=== PATIENT | male | born 1970 | race Caucasian/White ===

== ENCOUNTER 2018-08-31 05:20 | Inpatient (IN) | payer OTHER ==
[~2018-08-31] VITALS: Ht 185.4 cm; Wt 141.8 kg
[2018-08-31] VITALS (28 sets, daily range): BP systolic 90–136; BP diastolic 50–85; PULSE 80–114; RESP 15–20; Ht 185.4 cm; Wt 141.8 kg
--- NOTE | 2018-08-31 06:43 | PREAC ---
Date/Time of Note Date/Time of Note DATE: 08/31/18 TIME: 06:40 Anesthesia Eval and Record Evaluation Time Pre-Procedure Interview DATE: 08/31/18 TIME: 06:40 Age 47 Sex male NPO: 8 hrs Preoperative diagnosis L5-S1 spondylolisthesis and foraminal stenosis Planned procedure posterior lumbar fusion L5-S1 using interbody cages, brandie, bmp, screws Past Medical History Past Medical History: Includes GI: Morbid obesity Surgery & Anesthesia Issues No known issue Meds Anticoagulation: No Beta Len within 24 hr: No Reason Beta Len not given: Pt. not on B-Len No Active Prescriptions or Reported Meds Meds reviewed: Yes Allergies Coded Allergies: No Known Allergy (Unverified , 08/31/18) Allergies Reviewed: Yes Labs/Studies Labs Reviewed: Reviewed by anesthesiologist test: N/A Studies: ECG (nsr), CXR (nad) Pre-procedure Exam Last vitals Vital Signs Date Temp Pulse Resp B/P (MAP) Pulse Ox O2 O2 Flow FiO2 Time Delivery Rate 08/31/18 97.4 80 18 136/85 97 Room Air 05:41 (102) Airway: Adequate mouth opening, Adequate thyromental dist Mallampati: Mallampati II Teeth: Normal Lung: Normal Heart: Normal ASA Physical Status ASA physical status: 3 Emergency: None Planned Anesthetic General/MAC: ETT Planned Pain Management Parenteral pain med Pre-operative Attestations Prior to commencing anesthesia and surgery, the patient was re-evaluated, there was verification of: *The patient's identity *The results of appropriate recent lab work and preoperative vital signs *The above evaluation not changing prior to induction *Anesthetic plan, risk benefits, alternative and complications discussed with pa tient/family; questions answered; patient/family understands, accepts and wishes to proceed. HAYDER CURRY MD Aug 31, 2018 06:43
[2018-08-31] MEDS ORDERED: POLYMYXIN/BACITRACIN 1L IRRIG ONE (06:59)
[2018-08-31] MEDS ORDERED: THROMBIN 5000 UNIT VIAL ONE (06:59)
[2018-08-31] MEDS ORDERED: SEVOFLURANE 15 MIN ONE (07:00)
[2018-08-31] MEDS ORDERED: GELATIN SIZE 100 SPONGE ONE (07:00)
[2018-08-31] MEDS ORDERED: CEFAZOLIN 1 GM INJ ONE ×2 (07:00→07:18)
[2018-08-31] MEDS ORDERED: LIDOCAINE 2% (SDV) 5 ML INJ ONE (07:00)
[2018-08-31] MEDS ORDERED: PROPOFOL 20 ML ONE ×2 (07:00→07:18)
[2018-08-31] MEDS ORDERED: BUPIVACAINE 0.25% (MPF) 30 ML INJ ONE (07:00)
[2018-08-31] MEDS ORDERED: CEFAZOLIN 1 GM/50 ML (PMX) 50 ML IVPB ONE (07:00)
[2018-08-31] MEDS ORDERED: MIDAZOLAM 1 MG/ML 2 ML INJ ONE (07:00)
[2018-08-31] MEDS ORDERED: SUCCINYLCHOLINE CHLORIDE 100 MG/5 ML SYG IV ONE (07:00)
[2018-08-31] MEDS ORDERED: ROCURONIUM 50 MG INJ ONE ×2 (07:00→07:41)
--- NOTE | 2018-08-31 07:03 | HPN ---
Date/Time of Note Date/Time of Note DATE: 08/31/18 TIME: 07:03 Interval H&P Admission Note Pt. seen H&P reviewed: No system changes ZARI KANG MD Aug 31, 2018 07:03
[2018-08-31] MEDS ORDERED: CEFAZOLIN 2 GM/50 ML (PMX) 50 ML IVPB ONE (07:30)
[2018-08-31] MEDS ORDERED: ONDANSETRON 4 MG INJ ONE (07:40)
[2018-08-31] MEDS ORDERED: FAMOTIDINE 20 MG INJ ONE (07:40)
[2018-08-31] MEDS ORDERED: DEXAMETHASONE 4 MG/ML 5 ML INJ ONE (07:40)
[2018-08-31] MEDS ORDERED: EPHEDrine 25 MG/5 ML SYG ONE (08:18)
[2018-08-31] MEDS ORDERED: hydrALAzine 20 MG INJ ONE (09:58)
[2018-08-31] MEDS ORDERED: ESMOLOL 10 ML ONE (10:00)
[2018-08-31] MEDS ORDERED: HYDROmorphONE 2 MG/ML SYG ONE (10:59)
--- NOTE | 2018-08-31 12:50 | PAC ---
Date/Time of Note Date/Time of Note DATE: 08/31/18 TIME: 12:49 Post-Anesthesia Notes Post-Anesthesia Note Last documented vital signs Vital Signs Date Temp Pulse Resp B/P (MAP) Pulse Ox O2 O2 Flow FiO2 Time Delivery Rate 08/31/18 98.3 12:41 08/31/18 80 18 136/85 97 Room Air 05:41 (102) Activity: WNL Respiratory function: WNL Cardiovascular function: WNL Mental status: Baseline Pain reasonably controlled: Yes Hydration appropriate: Yes Nausea/Vomiting absent: Yes Comments BP: 99/58 HR: 99 RR: 15 T: 98.3 SaO2: 98% HAYDER CURRY MD Aug 31, 2018 12:50
--- NOTE | 2018-08-31 12:58 | SIPON ---
Date/Time of Note Date/Time of Note DATE: 08/31/18 TIME: 12:52 Operative Report Preoperative Diagnosis Grade 1 isthmic spondylolisthesis at L5-S1 with bilateral foraminal stenosis Postoperative Diagnosis Same Operation/Procedure Performed Denise procedure L5 (removal of loose posterior arch) Transforaminal lumbar interbody fusion at L5-S1 with RTI pedicle screws and rods Placement of interbody cage with bone graft and bone graft substitute (Nanoss) Cosmetic wound closure (10 cm) Intraoperative AP and lateral lumbar fluoroscopy Spinal cord monitoring (4.5 hours) Surgeon see signature line entry level assistant manager Celia SMITH Anesthesia: general Estimated blood loss: 150 - 200 ml's Transfusion Required none Specimen Disc material L5-S1 Grafts/Implants Two 5.5mm x 45mm pedicle screws Two 6.5 x 35mm pedicle screws A 6 cm lordotic brandie A 4 cm lordotic brandie A 12 mm lordotic peek cage Nanoss bone growth substitute Complications none ZARI KANG MD Aug 31, 2018 12:58
[2018-08-31] MEDS ORDERED: ACETAMINOPHEN 325 MG TAB PO PRN (13:00)
[2018-08-31] MEDS ORDERED: hydrALAzine 20 MG INJ IV PRN (13:00)
[2018-08-31] MEDS ORDERED: PROCHLORPERAZINE 10 MG TAB PO PRN (13:00)
[2018-08-31] MEDS ORDERED: ZOLPIDEM 5 MG TAB PO PRN (13:00)
[2018-08-31] MEDS ORDERED: FENTAnyl 50 MCG/ML VIAL IV PRN (13:00)
[2018-08-31] MEDS ORDERED: DIAZEPAM 5 MG/ML SYG IM PRN (13:00)
[2018-08-31] MEDS ORDERED: DIPHENHYDRAMINE 50 MG INJ IV PRN (13:00)
[2018-08-31] MEDS ORDERED: ONDANSETRON 4 MG INJ IV PRN ×2 (13:00)
[2018-08-31] MEDS ORDERED: BETHANECHOL 25 MG TAB PO PRN (13:00)
[2018-08-31] MEDS ORDERED: MEPERIDINE 25 MG INJ IV PRN (13:00)
[2018-08-31] MEDS ORDERED: CEPASTAT LOZENGE MT PRN (13:00)
[2018-08-31] MEDS ORDERED: PROCHLORPERAZINE 10 MG INJ IV PRN (13:00)
[2018-08-31] MEDS ORDERED: HYDROmorphONE 1 MG/5 ML IV SYRINGE IV PRN ×3 (13:00)
[2018-08-31] MEDS ORDERED: DIPHENHYDRAMINE 50 MG CAP PO PRN (13:00)
[2018-08-31] MEDS ORDERED: TRIMETHOBENZAMIDE 100 MG/ML VIAL IM PRN (13:00)
[2018-08-31] MEDS ORDERED: AL HYDROX/MG HYDROX/SIMETH 30 ML CUP PO PRN (13:00)
[2018-08-31] MEDS ORDERED: NALOXONE (0.4 MG/ML) INJ IV PRN (13:00)
[2018-08-31] MEDS ORDERED: LABETALOL HCL 20MG INJ IV PRN (13:00)
[2018-08-31] MEDS ORDERED: NACL 0.9% 3 ML SYG IV SCH (13:00)
[2018-08-31] MEDS ORDERED: HYDROCODONE/APAP (5/325) TAB PO PRN (13:00)
[2018-08-31] MEDS ORDERED: EPHEDrine SULFATE 50 MG/5 ML SYG IV PRN (13:00)
[2018-08-31] MEDS: HYDROmorphONE 0.2 MG/ML PCA IV SCH ×2 (13:03→20:15)
[2018-08-31] MEDS: DIAZEPAM 5 MG TAB PO PRN ×2 (15:24→20:06)
[2018-08-31] MEDS: CEFAZOLIN 1 GM/50 ML (PMX) 50 ML IVPB SCH ×2 (15:24→20:06)
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
[2018-08-31] MEDS: DEXTROSE 5%-0.45% NACL 1,000 ML IV SCH ×3 (17:44→22:38)
[2018-08-31] MEDS: RANITIDINE 150 MG TAB PO SCH (20:06)
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
[2018-09-01 02:04] VITALS: BP 116/65; PULSE 99; RESP 18
[2018-09-01] MEDS: CEFAZOLIN 1 GM/50 ML (PMX) 50 ML IVPB SCH ×2 (02:09→08:37)
[2018-09-01] MEDS: HYDROmorphONE 0.2 MG/ML PCA IV SCH (04:13)
--- NOTE | 2018-09-01 07:07 | PN ---
Date/Time of Note Date/Time of Note DATE: 09/01/18 TIME: 07:05 Assessment/Plan Lines/Catheters IV Catheter Type (from Nrsg): Peripheral IV Subjective 24 Hr Interval Summary Patient is postop day #1 from Transforaminal lumbar interbody fusion L5-S1. His vital signs are stable. Hemoglobin this morning was 12.0. His Hemovac drain overnight was 225cc and this will be left in place. Neurovascular structures are intact distally. Patient has his brace in the room. Physical therapy evaluated patient yesterday however he states he did not get up and walk as yet. Plan for today is to discontinue Rocha and HELICOPTER OFFICER. He will be started on oral pain medications. Physical therapy will work with him to progress his ambulation. Exam/Review of Systems Vital Signs Vitals Vital Signs Date Temp Pulse Resp B/P (MAP) Pulse Ox O2 O2 Flow FiO2 Time Delivery Rate 09/01/18 98.2 99 18 116/65 97 Nasal 2.0 02:04 (82) Cannula Intake and Output 08/31/18 08/31/18 09/01/18 1515:00 23:00 07:00 IntakeIntake Total 2450 ml 2970 ml 1300 ml OutputOutput Total 410 ml 350 ml 3525 ml BalanceBalance 2040 ml 2620 ml -2225 ml Results Result Diagram: 09/01/18 0432 09/01/18 0432 EJ SNEED Sep 01, 2018 07:07
[2018-09-01] MEDS ORDERED: BETHANECHOL 25 MG TAB PO PRN (08:00)
[2018-09-01 08:09] VITALS: BP 118/69; PULSE 104; RESP 18
[2018-09-01] MEDS: FERROUS SULFATE (EC) 325 MG TAB PO SCH ×3 (08:38→21:49)
[2018-09-01] MEDS: ASCORBIC ACID 500 MG TAB PO SCH ×2 (08:38→21:49)
[2018-09-01] MEDS: RANITIDINE 150 MG TAB PO SCH ×2 (08:38→21:49)
[2018-09-01] MEDS: DEXTROSE 5%-0.45% NACL 1,000 ML IV SCH (08:38)
[2018-09-01] MEDS: DOCUSATE SODIUM 100 MG CAP PO SCH ×2 (08:38→21:50)
[2018-09-01] MEDS: HYDROCODONE/APAP (5/325) TAB PO PRN ×3 (12:07→21:56)
--- NOTE | 2018-09-01 12:20 | CONS ---
Assessment/Plan Assessment/Plan Hospital Course (Demo Recall) 1. He is 1 day post op a lumbar spine surgery . He is doing well except for some wheezing . He is an every day smoker . I told him that he needs to stop smoking . I will order an inhaler for him . 2. On physical examination , I felt a L breast mass . I told him that he needs to see PCP and or general surgeon to have the mass evaluated . Consultation Date/Type/Reason Admit Date/Time Aug 31, 2018 at 05:20 Initial Consult Date Date/Time of Note DATE: 09/01/18 TIME: 12:13 24 HR Interval Summary Free Text/Dictation Vini is now 1 day post op a lumbar sacral spine surgery . He is afebrile with normal BP . He is up walking with PT . Constitutional: no complaints, improved Exam/Review of Systems Exam Vitals Vital Signs Date Temp Pulse Resp B/P (MAP) Pulse Ox O2 O2 Flow FiO2 Time Delivery Rate 09/01/18 97.6 104 18 118/69 100 Nasal 08:09 (85) Cannula 09/01/18 2.0 02:04 Intake and Output 08/31/18 08/31/18 09/01/18 1414:59 22:59 06:59 IntakeIntake Total 2450 ml 2970 ml 1300 ml OutputOutput Total 410 ml 350 ml 3525 ml BalanceBalance 2040 ml 2620 ml -2225 ml Constitutional: alert, oriented, well developed Respiratory: wheezing Cardiovascular: regular rate and rhythm Gastrointestinal: soft, non-tender Musculoskeletal: nl extremities to inspection Results Result Diagram: 09/01/18 0432 09/01/18 0432 Results 24hrs Laboratory Tests Test 09/01/18 04:32 09/01/18 08:45 Hemoglobin 12.0 L Hematocrit 37.1 L Sodium Level 138 Potassium Level 4.0 Chloride Level 104 Carbon Dioxide Level 28 Anion Gap 6 Blood Urea Nitrogen 13 Creatinine 0.88 Est Glomerular Filtrat Rate mL/min > 60 Glucose Level 94 Calcium Level 8.4 Urine Color STRAW Urine Clarity CLEAR Urine pH 5.0 Urine Specific [place] 1.004 Urine Ketones NEGATIVE Urine Nitrite NEGATIVE Urine Bilirubin NEGATIVE Urine Urobilinogen NEGATIVE Urine Leukocyte Esterase 2+ H Urine Microscopic RBC 2 Urine Microscopic WBC 5 Urine Bacteria FEW A Urine Mucus FEW A Urine Hemoglobin 2+ H Urine Glucose NEGATIVE Urine Total Protein NEGATIVE Medications Medication Current Medications Dextrose/Sodium Chloride 1,000 ml @ 100 mls/hr Q10H IV Last administered on 08/31/18at 20:08; Admin Dose 100 MLS/HR; Start 08/31/18 at 12:38 Acetaminophen/ Hydrocodone Bitart ([place] (5/325)) 1 tab Q4H PRN PO .PAIN 1-5; Start 08/31/18 at 13:00 Acetaminophen/ Hydrocodone Bitart ([place] (5/325)) 2 tab Q4H PRN PO .PAIN 6-10 Last administered on 09/01/18at 12:07; Admin Dose 2 TAB; Start 08/31/18 at 13:00 Zolpidem Tartrate (Ambien) 5 mg HS PRN PO .INSOMNIA; Start 08/31/18 at 13:00 Prochlorperazine (Compazine) 10 mg Q4H PRN PO NAUSEA/VOMITING; Start 08/31/18 at 13:00 Trimethobenzamide HCl (Tigan) 200 mg Q4H PRN IM NAUSEA/VOMITING; Start 08/31/18 at 13:00 Ondansetron HCl (Zofran Inj) 4 mg Q6H PRN IV NAUSEA/VOMITING; Start 08/31/18 at 13:00 Al Hydrox/Mg Hydrox/Simethicone (Mag-Al Plus) 15 ml Q4H PRN PO .CONSTIPATION; Start 08/31/18 at 13:00 Docusate Sodium (Colace) 100 mg BID PO Last administered on 09/01/18at 08:38; Admin Dose 100 MG; Start 09/01/18 at 09:00 Acetaminophen (Tylenol Tab) 650 mg Q4H PRN PO TEMP GREATER THAN 101F OR BARROSO; Start 08/31/18 at 13:00 Ascorbic Acid (Vitamin C) 1,000 mg BID PO Last administered on 09/01/18at 08:38; Admin Dose 1,000 MG; Start 09/01/18 at 09:00 Ferrous Sulfate (Ferrous Sulfate (Ec)) 325 mg TID PO Last administered on 09/01/18at 08:38; Admin Dose 325 MG; Start 09/01/18 at 09:00 Ranitidine HCl (Zantac) 150 mg BID PO Last administered on 09/01/18at 08:38; Admin Dose 150 MG; Start 08/31/18 at 21:00 Diazepam (Valium) 5 mg Q4H PRN PO .MUSCLE SPASM Last administered on 08/31/18at 20:06; Admin Dose 5 MG; Start 08/31/18 at 13:00 Diazepam (Valium) 5 mg Q4H PRN IM .MUSCLE SPASM; Start 08/31/18 at 13:00 Phenol (Cepastat Lozenge) 1 lozenge PRN PRN MT .SORE THROAT Last administered on 08/31/18at 15:24; Admin Dose 1 LOZENGE; Start 08/31/18 at 13:00 Diphenhydramine HCl (Benadryl) 50 mg Q6H PRN PO .PRURITUS; Start 08/31/18 at 13:00 IV Flush (NS 3 ml) 3 ml PER PROTOCOL IV ; Start 08/31/18 at 13:00 Hydromorphone HCl (Dilaudid HUSBANDRY TECHNICIAN) Q4PCA IV Last administered on 09/01/18at 04:13; Admin Dose 6 MG; Start 08/31/18 at 13:00 Naloxone HCl (Narcan) 0.2 mg Q2M PRN IV RR 8 BREATHS/MIN OR LESS; Start 08/31/18 at 13:00 Bethanechol Chloride (Urecholine) 25 mg PRN PRN PO UNABLE TO VOID Last administered on 09/01/18at 08:38; Admin Dose 25 MG; Start 09/01/18 at 08:00 GALLO JOHNS MD Sep 01, 2018 12:20
[2018-09-01 15:03] VITALS: BP 119/56; PULSE 103; RESP 18
[2018-09-01] MEDS: DIAZEPAM 5 MG TAB PO PRN (15:21)
[2018-09-01 19:20] VITALS: BP 113/55; PULSE 112; RESP 20
[2018-09-01 21:55] VITALS: PULSE 88
[2018-09-02 00:45] VITALS: BP 123/60; PULSE 99; RESP 18
[2018-09-02] MEDS: HYDROCODONE/APAP (5/325) TAB PO PRN ×2 (05:52→10:03)
[2018-09-02 08:17] VITALS: BP 153/87; RESP 18
--- NOTE | 2018-09-02 09:06 | CONS ---
Assessment/Plan Assessment/Plan Hospital Course (Demo Recall) 1. He is 2 days post op a lumbar spine surgery . He is doing well except for some wheezing . He is an every day smoker . I told him that he needs to stop smoking . I will order an inhaler for him , he refused. 2. On physical examination , I felt a L breast mass . I told him that he needs to see PCP and or general surgeon to have the mass evaluated after he is discharged from the hospital. He agrees. Consultation Date/Type/Reason Admit Date/Time Aug 31, 2018 at 05:20 Initial Consult Date Date/Time of Note DATE: 09/02/18 TIME: 09:04 24 HR Interval Summary Free Text/Dictation Vini is now 2 days postop a lumbar sacral spine surgery. He is awake and alert. He has no complaints. Constitutional: no complaints, improved Exam/Review of Systems Exam Vitals Vital Signs Date Temp Pulse Resp B/P (MAP) Pulse Ox O2 O2 Flow FiO2 Time Delivery Rate 09/02/18 98.2 18 153/87 95 08:17 (109) 09/02/18 99 00:45 09/01/18 Nasal 15:03 Cannula 09/01/18 2.0 02:04 Intake and Output 09/01/18 09/01/18 09/02/18 1515:00 23:00 07:00 IntakeIntake Total 600 ml 2100 ml 2100 ml OutputOutput Total 1350 ml 2820 ml 2325 ml BalanceBalance -750 ml -720 ml -225 ml Constitutional: alert, oriented, well developed Respiratory: clear to auscultation Cardiovascular: regular rate and rhythm Gastrointestinal: soft Musculoskeletal: nl extremities to inspection Results Result Diagram: 09/01/18 0432 09/01/18 0432 Medications Medication Current Medications Acetaminophen/ Hydrocodone Bitart ([place] (5/325)) 1 tab Q4H PRN PO .PAIN 1-5; Start 08/31/18 at 13:00 Acetaminophen/ Hydrocodone Bitart ([place] (5/325)) 2 tab Q4H PRN PO .PAIN 6-10 Last administered on 09/02/18at 05:52; Admin Dose 2 TAB; Start 08/31/18 at 13:00 Zolpidem Tartrate (Ambien) 5 mg HS PRN PO .INSOMNIA; Start 08/31/18 at 13:00 Prochlorperazine (Compazine) 10 mg Q4H PRN PO NAUSEA/VOMITING; Start 08/31/18 at 13:00 Trimethobenzamide HCl (Tigan) 200 mg Q4H PRN IM NAUSEA/VOMITING; Start 08/31/18 at 13:00 Ondansetron HCl (Zofran Inj) 4 mg Q6H PRN IV NAUSEA/VOMITING; Start 08/31/18 at 13:00 Al Hydrox/Mg Hydrox/Simethicone (Mag-Al Plus) 15 ml Q4H PRN PO .CONSTIPATION; Start 08/31/18 at 13:00 Docusate Sodium (Colace) 100 mg BID PO Last administered on 09/01/18 21:50; Admin Dose 100 MG; Start 09/01/18 at 09:00 Acetaminophen (Tylenol Tab) 650 mg Q4H PRN PO TEMP GREATER THAN 101F OR BARROSO; Start 08/31/18 at 13:00 Ascorbic Acid (Vitamin C) 1,000 mg BID PO Last administered on 09/01/18 21:49; Admin Dose 1,000 MG; Start 09/01/18 at 09:00 Ferrous Sulfate (Ferrous Sulfate (Ec)) 325 mg TID PO Last administered on 09/01/18 21:49; Admin Dose 325 MG; Start 09/01/18 at 09:00 Ranitidine HCl (Zantac) 150 mg BID PO Last administered on 09/01/18 21:49; Admin Dose 150 MG; Start 08/31/18 at 21:00 Diazepam (Valium) 5 mg Q4H PRN PO .MUSCLE SPASM Last administered on 09/01/18 15:21; Admin Dose 5 MG; Start 08/31/18 at 13:00 Diazepam (Valium) 5 mg Q4H PRN IM .MUSCLE SPASM; Start 08/31/18 at 13:00 Phenol (Cepastat Lozenge) 1 lozenge PRN PRN MT .SORE THROAT Last administered on 08/31/18 15:24; Admin Dose 1 LOZENGE; Start 08/31/18 at 13:00 Diphenhydramine HCl (Benadryl) 50 mg Q6H PRN PO .PRURITUS; Start 08/31/18 at 13:00 IV Flush (NS 3 ml) 3 ml PER PROTOCOL IV ; Start 08/31/18 at 13:00 Naloxone HCl (Narcan) 0.2 mg Q2M PRN IV RR 8 BREATHS/MIN OR LESS; Start 08/31/18 at 13:00 Bethanechol Chloride (Urecholine) 25 mg PRN PRN PO UNABLE TO VOID Last administered on 09/01/18at 08:38; Admin Dose 25 MG; Start 09/01/18 at 08:00 GALLO JOHNS MD Sep 02, 2018 09:06
[2018-09-02] MEDS: DOCUSATE SODIUM 100 MG CAP PO SCH (09:26)
[2018-09-02] MEDS: RANITIDINE 150 MG TAB PO SCH (09:26)
[2018-09-02] MEDS: ASCORBIC ACID 500 MG TAB PO SCH (09:26)
[2018-09-02] MEDS: FERROUS SULFATE (EC) 325 MG TAB PO SCH (09:26)
--- NOTE | 2018-09-02 09:44 | PN ---
Date/Time of Note Date/Time of Note DATE: 09/02/18 TIME: 09:32 Assessment/Plan Lines/Catheters IV Catheter Type (from Nrsg): Saline Lock Rocha in Place (from Nrsg): No Subjective 24 Hr Interval Summary The patient is postop day #2 following a transforaminal lumbar interbody fusion at L5-S1. He is resting comfortably in bed. He is afebrile. Neurovascular structures are intact distally. A.m. lab work is unremarkable. His Hemovac had 25 cc of drainage, and was discontinued. His wound is clean and dry and was redressed. He is making good progress with physical therapy, and may be cleared by later today. He has been given strict discharge precautions and instructions as well as follow-up arrangements. Exam/Review of Systems Vital Signs Vitals Vital Signs Date Temp Pulse Resp B/P (MAP) Pulse Ox O2 O2 Flow FiO2 Time Delivery Rate 09/02/18 98.2 18 153/87 95 08:17 (109) 09/02/18 99 00:45 09/01/18 Nasal 15:03 Cannula 09/01/18 2.0 02:04 Intake and Output 09/01/18 09/01/18 09/02/18 1515:00 23:00 07:00 IntakeIntake Total 600 ml 2100 ml 2100 ml OutputOutput Total 1350 ml 2820 ml 2325 ml BalanceBalance -750 ml -720 ml -225 ml Results Result Diagram: 09/01/18 0432 09/01/18 0432 ZARI KANG MD Sep 02, 2018 09:43
== END 2018-09-02 12:42 | disposition home or self-care (01) | DRG 460 ==
LOC: REC 05:20 → MS1 14:00
PROVIDERS: ADMIT Orthopaedic Surgery; ATTEND Orthopaedic Surgery
PROC: 0SB40ZZ Excision of Lumbosacral Disc, Open Approach (ICD-10-PCS; 2018-08-31)
PROC: 4A11X4G Monitoring of Peripheral Nervous Electrical Activity, Intraoperative, External Approach (ICD-10-PCS; 2018-08-31)
PROC: 0SG30AJ Fusion of Lumbosacral Joint with Interbody Fusion Device, Posterior Approach, Anterior Column, Open Approach (ICD-10-PCS; principal; 2018-08-31 07:00)
DX: M43.16 Spondylolisthesis, lumbar region (principal); M48.061 Spinal stenosis, lumbar region without neurogenic claudication; M51.87 Other intervertebral disc disorders, lumbosacral region; F17.200 Nicotine dependence, unspecified, uncomplicated; R06.2 Wheezing
CPT/HCPCS: 72110; 80048; 81001; 85014; 85018; 86850; 86900; 86901; 86920; 87086; 88304; 97116; 97161; 97530; C9359; C1713; J0360; J0690; J1100; J1170; J2175; J2250; J2405; J3010; J7042